=== PATIENT | female | born 1975 | race Caucasian/White ===

== ENCOUNTER 2016-08-16 20:25 | Emergency (ER) | payer OTHER | END 2016-08-16 22:30 | disposition home or self-care (01) | LOC: ER1 20:25 | DX: R60.0 Localized edema (principal); Z88.0 Allergy status to penicillin | CPT/HCPCS: 99283 ==

== ENCOUNTER 2020-05-22 22:00 | Emergency (ER) | payer OTHER ==
[2020-05-23 00:33] LABS: HEMOGLOBIN 14.6 gm/dl (12.3-15.3); RED BLOOD COUNT 4.85 M/UL (4.00-5.10); WHITE BLOOD COUNT 17.8 K/UL (4.5-11.0)
[2020-05-23 00:59] LABS: BUN/CREATININE RATIO 15 (0-10)
[2020-05-23] MEDS ORDERED: IBUPROFEN600 MG PO (03:40)
== END 2020-05-23 04:50 | disposition home or self-care (01) ==
LOC: ER1 22:00
PROVIDERS: Internal Medicine
DX: R07.9 Chest pain, unspecified (principal); E87.6 Hypokalemia; Z90.710 Acquired absence of both cervix and uterus; Z88.0 Allergy status to penicillin
CPT/HCPCS: 71046; 80053; 82550; 82553; 84484; 85025; 93005; 96374; 96375; 99285; J1885; J2405

== ENCOUNTER 2021-10-17 09:21 | Emergency (ER) | payer OTHER ==
[~2021-10-17 09:21] MED LIST: IBUPROFEN600 MG PO
[2021-10-17] MEDS ORDERED: CEPHALEXIN500 MG PO (09:54)
== END 2021-10-17 10:04 | disposition home or self-care (01) ==
LOC: ER1 09:21
DX: R59.0 Localized enlarged lymph nodes (principal); Z88.0 Allergy status to penicillin
CPT/HCPCS: 99282